=== PATIENT | male | born 1960 | race African-American/Black ===

== ENCOUNTER → 2018-01-22 | Outpatient (CLI) | payer BC | END | disposition home or self-care (01) | LOC: US 08:21 | DX: R10.84 Generalized abdominal pain (principal) | CPT/HCPCS: 76700 ==

== ENCOUNTER → 2018-02-18 | Outpatient (CLI) | payer BC ==
[~2018-02-18] MED LIST: CONTRAST GIVEN. MC
[2018-02-18] MEDS: IOHEXOL 300 MG/ML 100ML VIAL. IV (08:51)
== END | disposition home or self-care (01) ==
LOC: CT 08:25
DX: N28.1 Cyst of kidney, acquired (principal); M48.061 Spinal stenosis, lumbar region without neurogenic claudication
CPT/HCPCS: 74170; Q9967

== ENCOUNTER 2018-03-18 08:19 | Outpatient (CLI) | payer BC ==
[~2018-03-18] VITALS: Ht 185.4 cm; Wt 106.6 kg
[2018-03-18] MEDS ORDERED: METO-247 PO (08:42)
[2018-03-18 08:57] LABS: BASO % 0 % (0-3); EOS # 0.2 x10^3/uL (0.0-0.7); EOS % 3 % (0-3); HEMATOCRIT 38.4 % (39.0-53.0); HEMOGLOBIN 13.7 g/dL (13.0-17.5); LYMPH # 2.3 x10^3/uL (1.0-4.8); LYMPH % 37 % (24-48); MEAN CORPUSCULAR HEMOGLOBIN 32 pg (25-35); MEAN CORPUSCULAR HGB CONC 36 g/dL (31-37); MEAN CORPUSCULAR VOLUME 90 fL (79-100); MONO # 0.5 x10^3/uL (0.0-1.1); MONO % 8 % (0-9); NEUT # 3.3 x10^3uL (1.8-7.7); NEUT % 52 % (31-73); PLATELET COUNT 209 x10^3/uL (140-400); RED BLOOD COUNT 4.25 x10^6/uL (4.30-5.70); RED CELL DISTRIBUTION WIDTH 14.7 % (11.5-14.5); WHITE BLOOD COUNT 6.4 x10^3/uL (4.0-11.0)
[2018-03-18 09:15] LABS: PROTHROMBIN TIME PATIENT 12.4 SEC (11.7-14.0)
[2018-03-18 09:21] VITALS: BP 156/95
== END 2018-03-18 10:00 | disposition home or self-care (01) ==
LOC: INTRAD 08:19
PROVIDERS: ATTEND Urology
DX: Z53.9 Procedure and treatment not carried out, unspecified reason (principal); N28.89 Other specified disorders of kidney and ureter
CPT/HCPCS: 36415; 85025; 85610; 85730

== ENCOUNTER 2018-03-22 10:26 | Outpatient (CLI) | payer BC ==
[2018-03-22] MEDS ORDERED: LIDOCAINE WITH 8.4% SOD BICARB 3 ML DISP.SYRIN. (11:33)
[2018-03-22] MEDS ORDERED: GELATIN SPONGE SIZE 12-7MM SPONGE. (11:34)
[2018-03-22] MEDS ORDERED: MIDAZOLAM HCL/PF 2 MG/2 ML VIAL. (11:51)
[2018-03-22] MEDS ORDERED: fentaNYL PF VIAL 100 MCG/2 ML VIAL (11:51)
[2018-03-22] MEDS: MIDAZOLAM HCL/PF 2 MG/2 ML VIAL. IV (12:22)
[2018-03-22] MEDS: fentaNYL PF VIAL 100 MCG/2 ML VIAL IV (12:23)
[2018-03-22] MEDS: LIDOCAINE WITH 8.4% SOD BICARB 3 ML DISP.SYRIN. IJ (12:23)
== END 2018-03-22 15:45 | disposition home or self-care (01) ==
LOC: INTRAD 10:26
DX: N28.89 Other specified disorders of kidney and ureter (principal); I10 Essential (primary) hypertension; N40.0 Benign prostatic hyperplasia without lower urinary tract symptoms; F17.200 Nicotine dependence, unspecified, uncomplicated; M48.061 Spinal stenosis, lumbar region without neurogenic claudication; Z88.8 Allergy status to other drugs, medicaments and biological substances; Z79.899 Other long term (current) drug therapy
CPT/HCPCS: 50200; 77012; 88305; 99152; 99153; C1892; J2250; J3010

== ENCOUNTER 2018-12-30 00:49 | Emergency (ER) | payer BC ==
[~2018-12-30] VITALS: Ht 185.4 cm; Wt 108.9 kg
[~2018-12-30 00:49] MED LIST changes: -CONTRAST GIVEN. MC; +METO-247 PO
[2018-12-30 00:56] VITALS: BP 183/87
[2018-12-30 01:21] LABS: BASO # 0.1 x10^3/uL (0.0-0.2); BASO % 1 % (0-3); EOS # 0.3 x10^3/uL (0.0-0.7); EOS % 3 % (0-3); HEMATOCRIT 35.6 % (39.0-53.0); HEMOGLOBIN 12.2 g/dL (13.0-17.5); LYMPH # 2.5 x10^3/uL (1.0-4.8); LYMPH % 32 % (24-48); MEAN CORPUSCULAR HEMOGLOBIN 30 pg (25-35); MEAN CORPUSCULAR HGB CONC 34 g/dL (31-37); MEAN CORPUSCULAR VOLUME 88 fL (79-100); MONO # 0.6 x10^3/uL (0.0-1.1); MONO % 8 % (0-9); NEUT # 4.3 x10^3uL (1.8-7.7); NEUT % 55 % (31-73); PLATELET COUNT 230 x10^3/uL (140-400); PROTHROMBIN TIME PATIENT 12.6 SEC (11.7-14.0); RED BLOOD COUNT 4.03 x10^6/uL (4.30-5.70); RED CELL DISTRIBUTION WIDTH 14.7 % (11.5-14.5); WHITE BLOOD COUNT 7.8 x10^3/uL (4.0-11.0)
[2018-12-30 01:23] LABS: CALCIUM 8.8 mg/dL (8.5-10.1); CREATININE 1.2 mg/dL (0.7-1.3); GFR 74.7; POTASSIUM 3.2 mmol/L (3.5-5.1)
[2018-12-30] MEDS ORDERED: AMLO5TAB10 PO (01:23)
[2018-12-30 01:28] LABS: ALBUMIN 4.1 g/dL (3.4-5.0); ALBUMIN/GLOBULIN RATIO 1.2 (1.0-1.7); TOTAL BILIRUBIN 0.6 mg/dL (0.2-1.0); TOTAL PROTEIN 7.4 g/dL (6.4-8.2)
--- NOTE | 2018-12-30 01:32 | PHYS DOC ---
Past Medical History Past Medical History: Cancer, High Cholesterol, Hypertension Past Surgical History: No Surgical History Additional Past Surgical Histo: RIGHT RENAL CYST BIOPSY, R KIDNEY SX Alcohol Use: Occasionally Drug Use: None Adult General Chief Complaint Chief Complaint: CHEST PAIN HPI HPI Patient is a 58 year old M who presents with spasm and tingling to the left hand.. He states that the pain began in the hand after he was laying down on the L. side he was sort of lying on his left elbow he was eating a bowl strawberries he had spasming at the fourth and fifth fingers he felt up in the forearm it went away after a few minutes but he was worried about a possible stroke so he came to the emergency room for evaluation. He describes a cramping and twitching sensation in the left hand and forearm. He also states that he has pain with inspiration, but is not sure if that is from his recent cold last week he has been coughing occasional sputum the pain lasts for 1 second at the most and goes away. He denies sweating, vomiting, weakness, dizziness, a racing sensation, or palpitations. He has a history of HTN but denies high cholesterol or diabetes. Review of Systems Review of Systems Constitutional: Denies fever or chills [] Respiratory: Cardiovascular: No additional information not addressed in HPI [] GI: Denies abdominal pain, nausea, vomiting, bloody stools or diarrhea [] : Denies dysuria or hematuria [] Neurologic: Denies headache, focal weakness or sensory changes [] Endocrine: Denies polyuria or polydipsia [] All other systems were reviewed and found to be within normal limits, except as documented in this note. Allergies Allergies Allergies Coded Allergies Type Severity Reaction Last Updated Verified lisinopril Allergy Intermediate Swelling 03/18/18 Yes Physical Exam Physical Exam Constitutional: Well developed, well nourished, no acute distress, non-toxic appearance. [] HENT: Normocephalic, atraumatic, bilateral external ears normal, oropharynx moist, no oral exudates, nose normal. [] Eyes: PERRLA, EOMI, conjunctiva normal, no discharge. [] Neck: Normal range of motion, no tenderness, supple, no stridor. [] Cardiovascular:Heart rate regular rhythm, no murmur [] Lungs & Thorax: Bilateral breath sounds clear to auscultation [] Abdomen: Bowel sounds normal, soft, no tenderness, no masses, no pulsatile masses. [] Skin: Warm, dry, no erythema, no rash. [] Back: No tenderness, no CVA tenderness. [] Extremities: No tenderness, no cyanosis, no clubbing, ROM intact, no edema. [] Pedal pulse intact radial pulse intact Neurologic: Alert and oriented X 3, normal motor function, normal sensory function, no focal deficits noted. []NIH stroke scale is 0 Psychologic: Affect normal, judgement normal, mood normal. [] Current Patient Data Vital Signs Vital Signs Date Time Temp Pulse Resp B/P (MAP) Pulse Ox O2 Delivery O2 Flow Rate FiO2 12/30/18 00:56 99.3 87 20 183/87 (119) 98 Room Air 99.3 Lab Values Laboratory Tests Test 12/30/18 01:00 12/30/18 02:40 White Blood Count 7.8 x10^3/uL (4.0-11.0) Red Blood Count 4.03 x10^6/uL (4.30-5.70) L Hemoglobin 12.2 g/dL (13.0-17.5) L Hematocrit 35.6 % (39.0-53.0) L Mean Corpuscular Volume 88 fL (79-100) Mean Corpuscular Hemoglobin 30 pg (25-35) Mean Corpuscular Hemoglobin Concent 34 g/dL (31-37) Red Cell Distribution Width 14.7 % (11.5-14.5) H Platelet Count 230 x10^3/uL (140-400) Neutrophils (%) (Auto) 55 % (31-73) Lymphocytes (%) (Auto) 32 % (24-48) Monocytes (%) (Auto) 8 % (0-9) Eosinophils (%) (Auto) 3 % (0-3) Basophils (%) (Auto) 1 % (0-3) Neutrophils # (Auto) 4.3 x10^3uL (1.8-7.7) Lymphocytes # (Auto) 2.5 x10^3/uL (1.0-4.8) Monocytes # (Auto) 0.6 x10^3/uL (0.0-1.1) Eosinophils # (Auto) 0.3 x10^3/uL (0.0-0.7) Basophils # (Auto) 0.1 x10^3/uL (0.0-0.2) Prothrombin Time 12.6 SEC (11.7-14.0) Prothrombin Time INR 1.0 (0.8-1.1) Sodium Level 142 mmol/L (136-145) Potassium Level 3.2 mmol/L (3.5-5.1) L Chloride Level 103 mmol/L (98-107) Carbon Dioxide Level 29 mmol/L (21-32) Anion Gap 10 (6-14) Blood Urea Nitrogen 10 mg/dL (8-26) Creatinine 1.2 mg/dL (0.7-1.3) Estimated GFR (Cockcroft-Gault) 74.7 BUN/Creatinine Ratio 8 (6-20) Glucose Level 129 mg/dL (70-99) H Calcium Level 8.8 mg/dL (8.5-10.1) Total Bilirubin 0.6 mg/dL (0.2-1.0) Aspartate Amino Transferase (AST) 30 U/L (15-37) Alanine Aminotransferase (ALT) 38 U/L (16-63) Alkaline Phosphatase 109 U/L (46-116) Troponin I Quantitative < 0.017 ng/mL (0.000-0.055) Total Protein 7.4 g/dL (6.4-8.2) Albumin 4.1 g/dL (3.4-5.0) Albumin/Globulin Ratio 1.2 (1.0-1.7) Urine Collection Type Unknown Urine Color Yellow Urine Clarity Clear Urine pH 5.5 Urine Specific [place] 1.020 Urine Protein Negative mg/dL (NEG-TRACE) Urine Glucose (UA) Negative mg/dL (NEG) Urine Ketones (Stick) Negative mg/dL (NEG) Urine Blood Negative (NEG) Urine Nitrite Negative (NEG) Urine Bilirubin Negative (NEG) Urine Urobilinogen Dipstick 1.0 mg/dL (0.2 mg/dL) Urine Leukocyte Esterase Negative (NEG) Urine RBC 0 /HPF (0-2) Urine WBC Occ /HPF (0-4) Urine Squamous Epithelial Cells Occ /LPF Urine Bacteria 0 /HPF (0-FEW) Urine Hyaline Casts Few /HPF Urine Mucus Mod /LPF Laboratory Tests 12/30/18 01:00 Laboratory Tests 12/30/18 01:00 EKG EKG []EKG shows a normal sinus rhythm rate of 488 QTc no acute ischemia or STEMI was identified. Interpreted by me time of encounter Radiology/Procedures Radiology/Procedures [] Course & Med Decision Making Course & Med Decision Making Pertinent Labs and Imaging studies reviewed. (See chart for details) []58-year-old male with history of high cholesterol hypertension history of her renal cell tumor that was removed a few months back not on chemotherapy who is presenting with initially complained of some spasming to the left arm sounds like it was positional in nature when away after a few minutes patient's neurologic exam is normal. He has had some very atypical pain in the association of coughing. Chest x-ray was concerned about a possible very subtle basilar infiltrate this could also just be a confluence of shadows I did give some antib iotics given his week of cough return precautions were discussed and he voiced understanding of instructions the troponin was negative after a week if extremely atypical symptoms. Dragon Disclaimer Dragon Disclaimer This electronic medical record was generated, in whole or in part, using a voice recognition dictation system. Departure Departure Impression: Primary Impression: Chest pain Disposition: 01 HOME, SELF-CARE Condition: STABLE Referrals: JOSE SHORT (PCP) Scripts Doxycycline Hyclate (DOXYCYCLINE HYCLATE) 100 Mg Tablet 1 TAB PO BID, #14 TAB Prov: AYLIN POWELL MD 12/30/18 AYLIN POWELL MD December 30, 2018 01:32
[2018-12-30] MEDS ORDERED: DOXY100T PO (02:56)
[2018-12-30 03:16] LABS: BILIRUBIN,URINE NEGATIVE (NEG); CLARITY,URINE CLEAR; COLOR,URINE YELLOW; NITRITE,URINE NEGATIVE (NEG); PH,URINE 5.5; PROTEIN,URINE NEGATIVE (NEG-TRACE)
[2018-12-30 03:30] LABS: BACTERIA,URINE 0 /HPF (0-FEW); HYALINE CASTS, URINE FEW /HPF; RBC,URINE 0 /HPF (0-2); SQUAMOUS EPITHELIAL CELL,UR OCC /LPF; WBC,URINE OCC /HPF (0-4)
--- NOTE | 2018-12-30 07:15 | EKG ---
[facility] [address] [place] [address] Test Date: 2018-12-30 Test Time: 01:00:01 Pat Name: CORNELIA TEMPLETON Department: Room: Gender: M Babbitter: : 1960 Requested By: AYLIN POWELL Order Number: [id number] Reading MD: Teo Christian Measurements Intervals [place] Rate: 88 P: -36 TN: 118 QRS: 10 QRSD: 94 T: 31 QT: 400 QTc: 488 Interpretive Statements SINUS RHYTHM PROLONGED QT Electronically Signed On 01-21-2019 12:10:34 CDT by Teo Christian
--- NOTE | 2018-12-30 08:15 | RAD ---
PORTABLE CHEST 1V History: Chest pain Comparison: February 20, 2015 Findings: Single view of the chest is submitted. There is some atherosclerotic calcification near aortic arch. Cardiac silhouette is stable, likely epicardial fat on the left. There is no new significant pleural fluid, pneumothorax, lobar infiltrate. Impression: 1. There is no radiographic evidence of acute cardiopulmonary disease. Electronically signed by: Tyler Rico MD (12/30/2018 8:12 AM) [id number]
== END 2018-12-30 04:08 | disposition home or self-care (01) ==
LOC: ER 00:49
DX: R07.89 Other chest pain (principal); R20.2 Paresthesia of skin; R05 Cough; E78.00 Pure hypercholesterolemia, unspecified; I10 Essential (primary) hypertension; Z88.8 Allergy status to other drugs, medicaments and biological substances
CPT/HCPCS: 36415; 71045; 80053; 81001; 84484; 85025; 85610; 93005; 99285-25

== ENCOUNTER → 2020-02-22 | Outpatient (CLI) | payer BC ==
[~2020-02-22] MED LIST changes: +AMLO5TAB10 PO; +DOXY100T PO
--- NOTE | 2020-02-22 15:36 | RAD ---
CHEST PA LATERAL History: Wheezing, COPD Comparison: December 30, 2018 Findings: 2 views of the chest are submitted. There is no infiltrate, pneumothorax, or effusion. Pericardial cardiac silhouette is within normal limits in size. There is degree of flattening of the hemidiaphragms as may be seen with emphysema. Impression: 1. No acute radiographic abnormality is identified. There is suspected emphysema. Electronically signed by: Tyler Rico MD (02/22/2020 3:33 PM) [facility]
== END | disposition home or self-care (01) ==
LOC: RAD 14:29
PROVIDERS: ATTEND Family Medicine
DX: J44.9 Chronic obstructive pulmonary disease, unspecified (principal)
CPT/HCPCS: 71046

== ENCOUNTER 2020-11-12 22:11 | Emergency (ER) | payer BC ==
[~2020-11-12] VITALS: Ht 185.4 cm; Wt 111.0 kg
[~2020-11-12 22:11] MED LIST changes: +AMLO-186 PO; -AMLO5TAB10 PO
[2020-11-12] MEDS ORDERED: amLODIPine BESYLATE 5 MG TABLET PO ONE (23:45)
--- NOTE | 2020-11-12 23:47 | PHYS DOC ---
Past Medical History Past Medical History: Cancer, High Cholesterol, Hypertension Past Surgical History: No Surgical History Additional Past Surgical Histo: RIGHT RENAL CYST BIOPSY, R KIDNEY SX Smoking Status: Never Smoker Alcohol Use: Occasionally Drug Use: None General Adult EDM: Chief Complaint: LOWER EXTREMITY SWELLING HPI: HPI: Patient is a 60-year-old male presenting for left lower extremity pain. Onset was 3 days ago without any known inciting event or trauma. Nothing known makes better, direct palpation and ambulation make worse. Patient reports dull pain to posterior aspect of left calf that is nonradiating in nature. Associated symptoms include increased calf swelling versus contralateral limb, pain along entirety of posterior calf surface from knee down to Achilles area and increased warmth with palpation. Patient has history of cancer, no history of blood clots, hypercoagulable state, immunodeficiency, use of daily blood thinners, fever, chest pain, shortness of breath, abdominal pain, dysuria reported Review of Systems: Review of Systems: Fourteen body systems of review of systems have been reviewed. See HPI for per tinent positives and negative responses, other larson all other systems are negative, non-pertinent or non-contributory Heart Score: C/O Chest Pain: No Risk Factors: Risk Factors: DM, Current or recent (<one month) smoker, HTN, HLP, family history of CAD, obesity. Risk Scores: Score 0 - 3: 2.5% MACE over next 6 weeks - Discharge Home Score 4 - 6: 20.3% MACE over next 6 weeks - Admit for Clinical Observation Score 7 - 10: 72.7% MACE over next 6 weeks - Early Invasive Strategies Current Medications: Current Medications Medications (Trade) Dose Ordered Sig/John Start Time Stop Time Status Last Admin Dose Admin Amlodipine Besylate (Norvasc) 5 mg 1X ONCE 11/12/20 23:45 11/12/20 23:46 UNV Allergies: Allergies: Allergies Coded Allergies Type Severity Reaction Last Updated Verified lisinopril Allergy Intermediate Swelling 03/18/18 Yes Physical Exam: PE: Constitutional: Well developed, well nourished, no acute distress, non-toxic appearance. HENT: Normocephalic, atraumatic, bilateral external ears normal, oropharynx moist, no oral exudates, nose normal. Eyes: PERRLA, EOMI, conjunctiva normal, no discharge. Neck: Normal range of motion, no tenderness, supple, no stridor. Cardiovascular: Heart rate regular, sinus rhythm, no murmurs rubs or gallops Lungs & Thorax: Bilateral breath sounds clear to auscultation Abdomen: Bowel sounds normal, soft, no tenderness, no masses, no pulsatile masses. Nonsurgical abdomen, no peritoneal signs Skin: Warm, dry, no erythema, no rash. Back: No tenderness, no CVA tenderness. Extremities: No tenderness, no cyanosis, no clubbing, ROM intact, no edema. Positive Homans' sign to left lower extremity, increased circumference approximately 2 cm greater than contralateral right leg, pain with palpation of entirety of left posterior lower extremity from the knee down to Achilles area Neurologic: Alert and oriented X 3, grossly normal motor & sensory function, no focal deficits noted. Psychologic: Affect normal, judgement normal, mood normal. Current Patient Data: Labs: Laboratory Tests Test 11/13/20 00:20 White Blood Count 11.1 x10^3/uL Red Blood Count 4.34 x10^6/uL Hemoglobin 13.0 g/dL Hematocrit 38.4 % Mean Corpuscular Volume 88 fL Mean Corpuscular Hemoglobin 30 pg Mean Corpuscular Hemoglobin Concent 34 g/dL Red Cell Distribution Width 14.2 % Platelet Count 200 x10^3/uL Prothrombin Time 13.1 SEC Prothromb Time International Ratio 1.0 Activated Partial Thromboplast Time 32 SEC Sodium Level 142 mmol/L Potassium Level 3.8 mmol/L Chloride Level 104 mmol/L Carbon Dioxide Level 29 mmol/L Anion Gap 9 Blood Urea Nitrogen 8 mg/dL Creatinine 1.2 mg/dL Estimated GFR (Cockcroft-Gault) 74.2 Glucose Level 95 mg/dL Calcium Level 8.6 mg/dL Current Medications Medications (Trade) Dose Ordered Sig/John Route PRN Reason Start Time Stop Time Status Last Admin Dose Admin Amlodipine Besylate (Norvasc) 5 mg 1X ONCE PO 11/12/20 23:45 11/12/20 23:48 DC 11/13/20 00:25 Vital Signs: Vital Signs Date Time Temp Pulse Resp B/P (MAP) Pulse Ox O2 Delivery O2 Flow Rate FiO2 11/12/20 22:35 98.3 104 18 166/94 (118) 98 Room Air 98.3 EKG: EKG: [] Radiology/Procedures: Radiology/Procedures: PROCEDURE: VENOUS LOWER EXTREMITY LEFT Left lower extremity venous Doppler ultrasound History: Reason: LEFT CALF PAIN, INCREASED SIZE VS CONTRALATERAL Comparison: None. Procedure: Color flow Doppler, Doppler spectral analysis, and 2D images are obtained with and without compression in the area of the common femoral vein, superficial femoral vein - femoral vein junction, main femoral vein (superficial femoral vein) and popliteal vein. Veins of the proximal calf are also imaged. Findings: There is normal color flow, augmentation, and compressibility of all visualized vein segments. No evidence of deep venous thrombus is present. There is hypoechogenicity of the left proximal to mid calf measuring 10.1 x 5.5 x 1.8 cm. Hypoechogenicity could be complex fluid. Color Doppler interrogation is negative. IMPRESSION: No evidence of left lower extremity deep venous thrombosis. Electronically signed by: Juan Blackwood MD (11/13/2020 1:07 AM) [facility] Course & Med Decision Making: Course & Med Decision Making Patient with history and physical exam concerning for potential DVT of left lower extremity Comprehensive ER work-up obtained, labs and subsequent sonogram grossly nonconcerning Patient's blood pressure elevated throughout entirety of visit, states he took his 5 mg amlodipine approximately 2 hours prior to arrival that is later than he usually takes it. Patient was initially tachycardic but this improved after rest as this was measured immediately on arrival after ambulation I discussed little indication for further diagnostic work-up in ER setting. Discussed role of supportive care practices and close outpatient follow-up for repeat evaluation. No indication for antibiotics, blood thinners or other intervention at present. Strict return precautions were discussed with good understanding by patient, all questions and concerns addressed prior to ER departure Dragon Disclaimer: Grzegorz Disclaimer: This electronic medical record was generated, in whole or in part, using a voice recognition dictation system. Departure Departure Impression: Primary Impression: Pain in left lower leg Disposition: 01 DC HOME SELF CARE/HOMELESS Condition: STABLE Referrals: JOSE SHORT (PCP) Additional Instructions: It is likely that you have experienced a sprain/strain to an associated ligament/tendon within the joint that is causing you pain. Your comprehensive ER work-up was negative for blood clot. With that said, it is important you call your primary care physician first thing in the morning to review your ER visit today and discuss need for repeat evaluation in the clinic this upcoming week. There might be indication for repeat evaluation of your left lower leg with sonogram versus other imaging modality. The best treatment for this injury is continued range of motion. A Rest, Ice, Compression, Elevation (RICE) strat egy may also be helpful in the acute phase. Please follow up with your primary doctor. Please return to the ED if new or worrisome symptoms arise. RACQUEL DESAI DO Nov 12, 2020 23:47
[2020-11-13 00:25] VITALS: BP 193/104
[2020-11-13 00:30] LABS: HEMATOCRIT 38.4 % (39.0-53.0); RED BLOOD COUNT 4.34 x10^6/uL (4.30-5.70); RED CELL DISTRIBUTION WIDTH 14.2 % (11.5-14.5); WHITE BLOOD COUNT 11.1 x10^3/uL (4.0-11.0)
[2020-11-13 00:41] LABS: CALCIUM 8.6 mg/dL (8.5-10.1); CREATININE 1.2 mg/dL (0.7-1.3); GFR 74.2; POTASSIUM 3.8 mmol/L (3.5-5.1)
[2020-11-13 00:57] LABS: PROTHROMBIN TIME PATIENT 13.1 SEC (11.7-14.0)
--- NOTE | 2020-11-13 01:10 | RAD ---
Left lower extremity venous Doppler ultrasound History: Reason: LEFT CALF PAIN, INCREASED SIZE VS CONTRALATERAL Comparison: None. Procedure: Color flow Doppler, Doppler spectral analysis, and 2D images are obtained with and without compression in the area of the common femoral vein, superficial femoral vein - femoral vein junction , main femoral vein (superficial femoral vein) and popliteal vein. Veins of the proximal calf are als o imaged. Findings: There is normal color flow, augmentation, and compressibility of all visualized vein segments. No soco dence of deep venous thrombus is present. There is hypoechogenicity of the left proximal to mid calf measuring 10.1 x 5.5 x 1.8 cm. Hypoechogen icity could be complex fluid. Color Doppler interrogation is negative. IMPRESSION: No evidence of left lower extremity deep venous thrombosis. Electronically signed by: Juan Blackwood MD (11/13/2020 1:07 AM) [facility]
== END 2020-11-13 01:47 | disposition home or self-care (01) ==
LOC: ER 22:11
DX: M79.662 Pain in left lower leg (principal); R60.0 Localized edema; E78.00 Pure hypercholesterolemia, unspecified; I10 Essential (primary) hypertension; Z98.890 Other specified postprocedural states; Z85.9 Personal history of malignant neoplasm, unspecified; Z88.6 Allergy status to analgesic agent
CPT/HCPCS: 36415; 80048; 85027; 85610; 85730; 93971; 99284

== ENCOUNTER 2020-11-23 13:04 | Emergency (ER) | payer BC ==
[~2020-11-23] VITALS: Ht 185.4 cm; Wt 113.0 kg
--- NOTE | 2020-11-23 16:10 | ED.ADGEN ---
Past Medical History Past Medical History: Cancer, High Cholesterol, Hypertension Additional Past Surgical Histo: RIGHT RENAL CYST BIOPSY, R KIDNEY SX Smoking Status: Never Smoker Alcohol Use: Occasionally Drug Use: None General Adult EDM: Chief Complaint: LOWER EXTREMITY SWELLING HPI: HPI: Patient is a 60 year old male sent in by his primary care provider's office for left leg swelling. Patient states swelling started about 2 weeks ago, denies any trauma or history of blood clots. Patient states the leg was painful and was difficult to ambulate. Had an ultrasound that was -1-week ago. Patient states he had begun to get better and symptoms have improved 3 to 4 days ago and he felt like he was back to normal could return resume his activities. Patient says he went fishing and spent about 2 hours on his feet, and the swelling and pain returned. Patient had a subjective fever last night but did not check his temperature. Patient states he has a history of gout but is always been his toes, has never affected his ankle or his knee. Denies any other recent illness, fevers, cough, vomiting or diarrhea. Patient denies any skin lesions or abrasions to lower extremity prior to symptoms starting. Review of Systems: Review of Systems: All other systems within normal limits except for as noted in the HPI Current Medications: Current Medications Medications (Trade) Dose Ordered Sig/John Start Time Stop Time Status Last Admin Dose Admin Info (CONTRAST GIVEN -- Rx MONITORING) 1 each PRN DAILY PRN 11/23/20 18:00 11/23/20 20:40 DC Iohexol (Omnipaque 350 Mg/ml) 100 ml 1X ONCE 11/23/20 18:00 11/23/20 18:01 DC 11/23/20 18:26 100 ML Allergies: Allergies: Allergies Coded Allergies Type Severity Reaction Last Updated Verified lisinopril Allergy Intermediate Swelling 03/18/18 Yes Physical Exam: PE: Constitutional: Well developed, well nourished, no acute distress, non-toxic appearance. [] HENT: Normocephalic, atraumatic, bilateral external ears normal, nose normal. [] Eyes: PERRLA, conjunctiva normal, no discharge. [] Neck: No rigidity, supple, no stridor. [] Cardiovascular: Regular rate and rhythm, brisk cap refill [] Lungs & Thorax: Non labored symmetric respirations, no tachypnea or respiratory distress [] Abdomen: Soft, nondistended. Skin: Warm, dry, no erythema, no rash. [] Back: Unremarkable Extremities: No deformities, range of motion grossly intact, right lower extremity within normal limits, left lower extremity swollen from the knee, range of motion intact, pitting edema, indurated skin with tense area near medial calf, lateral calf soft. [] Neurologic: Alert and oriented X 3, no focal deficits noted. [] Psychologic: Affect normal, judgement normal, mood normal. [] Constitutional: Well developed, well nourished, no acute distress, non-toxic appearance HENT: Normocephalic, atraumatic Eyes: Conjunctiva normal, no discharge Neck: Normal range of motion, supple Lungs & Thorax: No respiratory distress, equal chest rise and fall Skin: Warm, dry, ecchymotic and indurated area to left proximal calf Extremities: Left calf tenderness, ROM intact Neurologic: Alert and oriented X 3, no focal deficits noted Psychologic: Affect normal, judgment normal Current Patient Data: Labs: Laboratory Tests Test 11/23/20 16:17 White Blood Count 8.9 x10^3/uL (4.0-11.0) Red Blood Count 4.15 x10^6/uL (4.30-5.70) L Hemoglobin 12.7 g/dL (13.0-17.5) L Hematocrit 36.5 % (39.0-53.0) L Mean Corpuscular Volume 88 fL (79-100) Mean Corpuscular Hemoglobin 31 pg (25-35) Mean Corpuscular Hemoglobin Concent 35 g/dL (31-37) Red Cell Distribution Width 14.0 % (11.5-14.5) Platelet Count 296 x10^3/uL (140-400) Neutrophils (%) (Auto) 69 % (31-73) Lymphocytes (%) (Auto) 23 % (24-48) L Monocytes (%) (Auto) 6 % (0-9) Eosinophils (%) (Auto) 1 % (0-3) Basophils (%) (Auto) 1 % (0-3) Neutrophils # (Auto) 6.1 x10^3/uL (1.8-7.7) Lymphocytes # (Auto) 2.1 x10^3/uL (1.0-4.8) Monocytes # (Auto) 0.6 x10^3/uL (0.0-1.1) Eosinophils # (Auto) 0.1 x10^3/uL (0.0-0.7) Basophils # (Auto) 0.1 x10^3/uL (0.0-0.2) Prothrombin Time 13.0 SEC (11.7-14.0) Prothrombin Time INR 1.0 (0.8-1.1) D-Dimer (Juliet) 1.65 ug/mlFEU (0.00-0.50) H Sodium Level 141 mmol/L (136-145) Potassium Level 4.1 mmol/L (3.5-5.1) Chloride Level 105 mmol/L (98-107) Carbon Dioxide Level 28 mmol/L (21-32) Anion Gap 8 (6-14) Blood Urea Nitrogen 14 mg/dL (8-26) Creatinine 1.0 mg/dL (0.7-1.3) Estimated GFR (Cockcroft-Gault) 91.6 BUN/Creatinine Ratio 14 (6-20) Glucose Level 110 mg/dL (70-99) H Lactic Acid Level 1.3 mmol/L (0.4-2.0) Uric Acid 6.3 mg/dL (3.5-7.2) Calcium Level 8.6 mg/dL (8.5-10.1) Total Bilirubin 0.9 mg/dL (0.2-1.0) Aspartate Amino Transferase (AST) 22 U/L (15-37) Alanine Aminotransferase (ALT) 32 U/L (16-63) Alkaline Phosphatase 106 U/L (46-116) C-Reactive Protein, Quantitative 24.8 mg/L (0-3.3) H Total Protein 7.8 g/dL (6.4-8.2) Albumin 3.7 g/dL (3.4-5.0) Albumin/Globulin Ratio 0.9 (1.0-1.7) L Laboratory Tests 11/23/20 16:17 Laboratory Tests 11/23/20 16:17 Vital Signs: Vital Signs Date Time Temp Pulse Resp B/P (MAP) Pulse Ox O2 Delivery O2 Flow Rate FiO2 11/23/20 20:07 78 16 150/87 (108) 96 Room Air 11/23/20 13:20 98.8 98.8 EKG: EKG: [] Heart Score: C/O Chest Pain: No Radiology/Procedures: Radiology/Procedures: STUDY: US DPLX VENOUS EXTREMITY LOWER LT INDICATION: Lower extremity swelling and pain. TECHNIQUE: Color-flow and pulsed wave duplex ultrasound with compression of venous structures of the left lower extremity. COMPARISON: 11/12/2020. FINDINGS: Duplex ultrasound with compression of the deep venous structures of the left lower extremity from the common femoral vein through the popliteal vein is negative for DVT. The posterior tibial and peroneal veins are segmentally visualized and patent w here seen. Normal venous waveforms and augmentation are noted throughout. Redemonstration of a complex, avascular collection within the subcutaneous tissues at the medial calf. This appears slightly larger from the prior. IMPRESSION: 1. No deep venous thrombosis throughout the left lower extremity. 2. Complex collection at the medial calf without Doppler flow is again noted and appears to be at the interface of the subcutaneous tissues and calf musculature. This appears slightly larger from the 11/13/2020 comparison noting differences in imaging technique. The most likely etiology is a hematoma. Sequela of a ruptured Sandoval's cyst is possible as well. Recommend correlation for any known injury or anticoagulation. PROCEDURE: CT ANGIO ABD ILEO/FEMOR RUNOFF CTA OF THE ABDOMEN AND PELVIS and Bilateral lower extremity runoff with IV CONTRAST. History: Left lower extremity swelling and lump Comparison:None. Procedure: Contiguous axial images of the abdomen and pelvis were performed after the administration of 100 cc of Omni 350 IV contrast. Timing is appropriate for arterial evaluation and multiplanar reconstruction was performed with separate imaging workstation including 3-D maximum intensity projected imaging as well as 3-D arterial surface rendering. Oral contrast: No. CTA of the abdomen and pelvis with contrast: The aorta and great vessels are normal The appendix is normal. The gallbladder is normal. Liver: Unremarkable Spleen: Unremarkable Pancreas: Unremarkable Adrenal Glands: Unremarkable Kidneys: The 2.1 x 1.2 cm angiomyolipoma arising from the upper pole of the right kidney posterior laterally. There is no mass or lymphadenopathy. There is no free air. There is no free fluid. The urinary bladder appears normal. Impression: No acute findings. End impression Bilateral CTA lower extremity runoff: The arteries appear normal bilaterally. The soft tissue edema on the left and there is a 6.7 cm x 2.6 cm x 8.9 cm mixed density lesion seen in the medial aspect of the medial head of the gastrocnemius muscle. IMPRESSION: 1. Large hematoma in the medial head of the gastrocnemius muscle on the left. 2. Diffuse soft tissue edema in the left lower extremity below the knee. 3. Normal arteries bilaterally. End impression PQRS Compliance Statement: One or more of the following individualized dose reduction techniques were utilized for this examination: 1. Automated exposure control 2. Adjustment of the mA and/or kV according to patient size 3. Use of iterative reconstruction technique Electronically signed by: Richardson Whittaker III, MD (11/23/2020 6:53 PM) [facility] Course & Med Decision Making: Course & Med Decision Making Pertinent Labs and Imaging studies reviewed. (See chart for details) Care transition at shift change. Pending CTA of the legs. 1800- Sign out received from Dr. Jane for patient pending CT of extremity. Venous doppler negative for DVT. Labs reviewed. Patient seen and evaluated by myself. CT with findings consistent for hematoma. MARK bandage applied. Discussed case with Dr. Jaimes (insurance verification representative for Dr. Britton) regarding patient and findings. In agreement with discharge home with outpatient follow-up with PCP/Orthopedics. Orthopedic referral provided. Discussed findings and plan with patient, who acknowledges understanding and agreement. Dragon Disclaimer: Dragon Disclaimer: This electronic medical record was generated, in whole or in part, using a voice recognition dictation system. Splinting Splinting : Location: Left lower extremity Pre-Made Type: Mark bandage Pre-Proc Neuro Vasc Exam: normal Post-Proc Neuro Vasc Exam: normal, unchanged from pre-exam Departure Departure Impression: Primary Impression: Hematoma Disposition: 01 DC HOME SELF CARE/HOMELESS Condition: STABLE Referrals: JOSE SHORT (PCP) JAVI BRITTON MD, JOHN N MD Patient Instructions: Crutch Use, [id number], Elastic Bandage and RICE, Hematoma, [id number] Additional Instructions: ICE area 20 min on then leave off next 20 mins. May use "compression socks" instead of MARK bandage to add compression to your lower leg. Scripts Hydrocodone Bit/Acetaminophen (HYDROCODONE-APAP 5-325 ) 1 Tab Tablet 0.5-1 TAB PO PRN Q6HRS PRN for PAIN, #10 TAB 0 Refills Prov: ABBY RUELAS DO 11/23/20 BENNY JANE MD Nov 23, 2020 16:10 ABBY RUELAS DO Nov 23, 2020 19:52
[2020-11-23 16:28] LABS: BASO # 0.1 x10^3/uL (0.0-0.2); BASO % 1 % (0-3); EOS # 0.1 x10^3/uL (0.0-0.7); EOS % 1 % (0-3); HEMATOCRIT 36.5 % (39.0-53.0); HEMOGLOBIN 12.7 g/dL (13.0-17.5); LYMPH # 2.1 x10^3/uL (1.0-4.8); LYMPH % 23 % (24-48); MEAN CORPUSCULAR HEMOGLOBIN 31 pg (25-35); MEAN CORPUSCULAR HGB CONC 35 g/dL (31-37); MEAN CORPUSCULAR VOLUME 88 fL (79-100); MONO # 0.6 x10^3/uL (0.0-1.1); MONO % 6 % (0-9); NEUT # 6.1 x10^3/uL (1.8-7.7); NEUT % 69 % (31-73); PLATELET COUNT 296 x10^3/uL (140-400); RED BLOOD COUNT 4.15 x10^6/uL (4.30-5.70); WHITE BLOOD COUNT 8.9 x10^3/uL (4.0-11.0)
[2020-11-23 16:38] LABS: CALCIUM 8.6 mg/dL (8.5-10.1); GFR 91.6; POTASSIUM 4.1 mmol/L (3.5-5.1)
[2020-11-23 16:44] LABS: ALBUMIN 3.7 g/dL (3.4-5.0); ALBUMIN/GLOBULIN RATIO 0.9 (1.0-1.7); C-REACTIVE PROTEIN 24.8 mg/L (0-3.3); D-DIMER 1.65 ug/mlFEU (0.00-0.50); TOTAL BILIRUBIN 0.9 mg/dL (0.2-1.0); TOTAL PROTEIN 7.8 g/dL (6.4-8.2); URIC ACID 6.3 mg/dL (3.5-7.2)
--- NOTE | 2020-11-23 17:03 | RAD ---
STUDY: US DPLX VENOUS EXTREMITY LOWER LT INDICATION: Lower extremity swelling and pain. TECHNIQUE: Color-flow and pulsed wave duplex ultrasound with compression of venous structures of the left lower extremity. COMPARISON: 11/12/2020. FINDINGS: Duplex ultrasound with compression of the deep venous structures of the left lower extremity from the common femoral vein through the popliteal vein is negative for DVT. The posterior tibial and peroneal veins are segmentally visualized and patent where seen. Normal veno us waveforms and augmentation are noted throughout. Redemonstration of a complex, avascular collection within the subcutaneous tissues at the medial calf . This appears slightly larger from the prior. IMPRESSION: 1. No deep venous thrombosis throughout the left lower extremity. 2. Complex collection at the medial calf without Doppler flow is again noted and appears to be at the interface of the subcutaneous tissues and calf musculature. This appears slightly larger from the comparison noting differences in imaging technique. The most likely etiology is a hematoma. S equela of a ruptured Sandoval's cyst is possible as well. Recommend correlation for any known injury or anticoagulation. Electronically signed by: MU FUENTES MD (11/23/2020 5:01 PM) [facility]
[2020-11-23] MEDS ORDERED: CONTRAST GIVEN. MC PRN (18:00)
[2020-11-23] MEDS: IOHEXOL 350 MG/ML 100 ML VIAL. IV ONE (18:26)
--- NOTE | 2020-11-23 18:56 | RAD ---
CTA OF THE ABDOMEN AND PELVIS and Bilateral lower extremity runoff with IV CONTRAST. History: Left lower extremity swelling and lump Comparison:None. Procedure: Contiguous axial images of the abdomen and pelvis were performed after the administration of 100 cc of Omni 350 IV contrast. Timing is appropriate for arterial evaluation and multiplanar reconstruction was performed with separate imaging workstation including 3-D maximum intensity projected imaging as well as 3-D arterial surface rendering. Oral contrast: No. CTA of the abdomen and pelvis with contrast: The aorta and great vessels are normal The appendix is normal. The gallbladder is normal. Liver: Unremarkable Spleen: Unremarkable Pancreas: Unremarkable Adrenal Glands: Unremarkable Kidneys: The 2.1 x 1.2 cm angiomyolipoma arising from the upper pole of the right kidney posterior la terally. There is no mass or lymphadenopathy. There is no free air. There is no free fluid. The urinary bladder appears normal. Impression: No acute findings. End impression Bilateral CTA lower extremity runoff: The arteries appear normal bilaterally. The soft tissue edema on the left and there is a 6.7 cm x 2.6 cm x 8.9 cm mixed density lesion seen i n the medial aspect of the medial head of the gastrocnemius muscle. IMPRESSION: 1. Large hematoma in the medial head of the gastrocnemius muscle on the left. 2. Diffuse soft tissue edema in the left lower extremity below the knee. 3. Normal arteries bilaterally. End impression PQRS Compliance Statement: One or more of the following individualized dose reduction techniques were utilized for this examinat ion: 1. Automated exposure control 2. Adjustment of the mA and/or kV according to patient size 3. Use of iterative reconstruction technique Electronically signed by: Richardson Whittaker III, MD (11/23/2020 6:53 PM) [facility]
[2020-11-23] MEDS ORDERED: HYDR-2761 PO (19:52)
[2020-11-23 20:07] VITALS: BP 150/87
== END 2020-11-23 20:29 | disposition home or self-care (01) ==
LOC: ER 13:04
DX: S80.12XA Contusion of left lower leg, initial encounter (principal); R60.0 Localized edema; M79.605 Pain in left leg; E78.00 Pure hypercholesterolemia, unspecified; I10 Essential (primary) hypertension; Z85.9 Personal history of malignant neoplasm, unspecified; Z98.890 Other specified postprocedural states; X58.XXXA Exposure to other specified factors, initial encounter; Y93.89 Activity, other specified; Y92.89 Other specified places as the place of occurrence of the external cause; Y99.8 Other external cause status
CPT/HCPCS: 36415; 75635; 80053; 83605; 84550; 85025; 85379; 85610; 86140; 87040; 93971; 99285; Q9967